=== PATIENT | male | born 1970 | race African-American/Black ===

== ENCOUNTER 2024-06-26 08:51 | Emergency (ER) | payer SELFPAY ==
--- OUTSIDE RECORDS SUMMARY | 2024-06-26 08:55 | XMS REPORT | Continuity of Care Document ---
Author Name Unknown Address [address] [place] [address] [address] [facility] Address [address] [facility] [address] [place] [address] Care Team Providers Care Grey Goods Examiner Name Role Phone YUDITH MILES Attending Clinician Unavailable NITA NAJERA Attending Clinician Unavailab flora Pinon Attending Clinician Unavailable Fernando Attending Clinician Unavailable CHARITY MCPHERSON Attending Clinician UnavailFRANKY Whittington Attending Clinician Unavailable ERNA LAMAR Attending Clinician Unavailab IVY Rader Attending Clinician Unavailable JERI HAWKINS Attending Clinician Unavailable NO PHYSICIAN, . Attending Clinician Unavailable THAO SNEED Attending Clinician Unavaila PASCUAL Renae Attending Clinician HUSAM Perez Attending Clinician Unavailab flora Pinon Admitting Clinician Unavailable Fernando Admitting Clinician Unavailable Payers Payer Name Policy Type Policy Number Effective Date Expirati on Date Source [facility] (O) [id number] Social History Smoking Status Start Date Stop Date Source Light Tobacco Smoker [facility] Medications Ordered Medication Name Filled Medication Name Start Date Stop Date Current Medication? Ordering Clinician Indication Dosage Frequency Signature (SIG) Comments Components Source Debrox 6.5 % ear drops INSTILL 5 DROPS INTO AFFECTED EAR(S) BY OTIC ROUTE 2 TIMES PER DAY Debrox 6.5 % ear drops INSTILL 5 DROPS INTO AFFECTED EAR(S) BY OTIC ROUTE 2 TIMES PER DAY No Debrox 6.5 % ear drops INSTILL 5 DROPS INTO AFFECTED EAR(S) BY OTIC ROUTE 2 TIMES PER DAY [facility] Vital Signs Vital Name Observation Time Observation Value Comments S ource BMI (Body Mass Index) 2023-02-21 00:00:00 20.5 kg/m2 [facility] BP Systolic 2023-02-21 00:00:00 138 mm[Hg] Abram gtz [facility] Body Weight 2023-02-21 00:00:00 2357 [oz_av] Maxi pedroza [facility] BP Diastolic 2023-02-21 00:00:00 83 mm[Hg] Lopez mark [facility] Height 2023-02-21 00:00:00 71 [in_i] Nora restrepo [facility] Encounters Start Date/Time End Date/Time Encounter Type Admission Type Attending Clinicians Care Facility Care Department Encounter ID Source 2024-03-15 20:04:00 2024-03-15 23:12:00 Emergency ER CATYUDITH RUIZ [facility] [id number] [facility] 2024-03-14 00:57:00 2024-03-14 05:20:00 Emergency ER YUDITH MILES [facility] [id number] [facility] 2024-03-12 17:30:00 2024-03-12 19:28:00 Emergency ER NITA NAJERA [facility] [id number] [facility] 2023-06-07 00:00:00 2023-06-07 00:00:00 Outpatient Ritter_Kath erine [facility] [id number] [facility] 2023-05-03 00:00:00 2023-05-03 00:00:00 Outpatient Ritter_Kath erine [facility] [id number] [facility] 2023-03-31 00:00:00 2023-03-31 00:00:00 Outpatient Ritter_Kath erine [facility] [id number] [facility] 2023-02-21 07:37:00 2023-02-21 08:24:00 Emergency ER NITA NAJERA [facility] [id number] [facility] 2023-02-21 00:00:00 2023-02-21 00:00:00 Outpatient Ritter_Kath erine [facility] [id number] [facility] 2023-02-21 00:00:00 2023-02-21 00:00:00 Outpatient Ritter_Kath erine [facility] [id number] [facility] 2023-02-21 00:00:00 2023-02-21 00:00:00 Outpatient Ritter_Kath erine [facility] [id number] [facility] 2023-02-21 00:00:00 2023-02-21 00:00:00 Mitzy Martínez, OPHTHALMIC SURGICAL ASSISTANT: [address] [place] [address] , Ph. [facility] [place] [facility] - [facility] Primary Expansion [id number] [facility] 2021-12-24 12:15:00 2021-12-24 12:15:00 Outpatient cMcDonald [facility] [id number] [facility] 2021-12-24 08:53:00 2021-12-24 10:55:00 Emergency ER GINGER YUDITH [facility] [id number] [facility] 2019-09-21 07:52:00 2019-09-21 09:55:00 Emergency ER RAJESHNIKIA CHARITY [facility] [id number] [facility] 2019-04-18 02:17:00 2019-04-18 03:06:00 Emergency ER FRANKY MCKINLEY [facility] [id number] [facility] 2017-11-14 06:00:00 2017-11-14 10:23:00 Emergency ER ERNA LAMAR [facility] [id number] [facility] 2017-06-22 04:46:00 2017-06-22 06:38:00 Emergency ER IVY YAP [facility] [id number] [facility] 2017-06-12 05:20:00 2017-06-12 06:36:00 Emergency ER IVY YAP [facility] [id number] [facility] 2017-06-11 12:36:00 2017-06-11 15:30:00 Emergency ER FRANKY MCKINLEY [facility] [id number] [facility] 2017-06-10 04:00:00 2017-06-10 05:01:00 Emergency ER JERI HAWKINS [facility] [id number] [facility] 2014-04-19 15:06:00 2014-04-19 17:50:00 Emergency ER ERNA LAMAR [facility] [id number] [facility] 2013-10-23 14:43:00 2013-10-23 16:04:00 Emergency ER ERNA LAMAR [facility] [id number] [facility] 2013-09-25 15:00:00 2013-09-25 15:00:00 Outpatient EL NO PHYSICIAN, . [facility] [id number] [facility] 2013-08-02 13:59:00 2013-08-02 13:59:00 Outpatient EL NO PHYSICIAN, . [facility] [id number] [facility] 2013-05-29 14:49:00 2013-05-29 14:49:00 Outpatient EL NO PHYSICIAN, . [facility] [id number] [facility] 2010-06-30 12:56:00 2010-06-30 18:00:00 Emergency ER THAO SNEED [facility] [id number] [facility] 2009-03-18 02:50:00 2009-03-18 06:14:00 Emergency ER ROGER FREEMANKAMLESH [facility] [id number] [facility] 2005-03-23 15:11:00 2005-03-23 18:15:00 Emergency ER ERNA LAMAR [facility] [id number] [facility] 1999-11-29 12:40:00 1999-11-29 15:25:00 Emergency ER HUSAM BELTRAN [facility] [id number] [facility]
[2024-06-26] MEDS ORDERED: KETOROLAC 30 MG/ML INJ ONE (09:46)
[2024-06-26] MEDS ORDERED: HYDROCODONE/APAP 10/325 TAB ONE (09:46)
--- NOTE | 2024-06-26 09:51 | ER ---
Nurse's Notes [facility] Name: Tye Wilhelm Age: 53 yrs Sex: Male : 1970 Arrival Date: 06/26/2024 Time: 08:51 Bed 10 Private MD: Diagnosis: Dental Pain Presentation: 06/26 09:11 Chief complaint: Patient states: he has been having right upper tooth pain for approx 2 ap3 months. patient reports seeing a dentist yesterday but was informed he needed to see a specialist. patient reports the pain is too severe and he can't sleep. Coronavirus screen: At this time, the client does not indicate any symptoms associated with coronavirus-19. Ebola Screen: No symptoms or risks identified at this time. Initial Sepsis Screen: Does the patient meet any 2 criteria? No. Patient's initial sepsis screen is negative. Does the patient have a suspected source of infection? No. Patient's initial sepsis screen is negative. Risk Assessment: Do you want to hurt yourself or someone else? Patient reports no desire to harm self or others. Onset of symptoms is unknown. 09:11 Method Of Arrival: Ambulatory ap3 09:11 Acuity: NAKIA 4 ap3 Triage Assessment: 09:14 General: Appears uncomfortable, Behavior is crying. Pain: Complains of pain in mouth ap3 Pain currently is 10 out of 10 on a pain scale. Pain began gradually, 2 months ago. EENT: Reports pain in right cheek, mouth and right jaw. Neuro: Level of Consciousness is awake, alert, obeys commands, Oriented to person, place, time, situation, Appropriate for age Gait is steady, Speech is normal. Cardiovascular: Patient's skin is warm and dry. Respiratory: Airway is patent Respiratory effort is even, unlabored, Respiratory pattern is regular, symmetrical. Historical: - Allergies: 09:15 No Known Allergies; ap3 - Immunization history:: Client reports receiving the 2nd dose of the Covid vaccine. - Infectious Disease History:: Denies. - Social history:: Smoking status: unknown. - Family history:: not pertinent. - Hospitalizations: : No recent hospitalization is reported. Screenin:14 [facility] ED Fall Risk Assessment (Adult) History of falling in the last 3 months, ap3 including since admission No falls in past 3 months (0 pts) Confusion or Disorientation No (0 pts) Intoxicated or Sedated No (0 pts) Impaired Gait No (0 pts) Mobility Assist Device Used No (0 pt) Altered Elimination No (0 pt) Score/Fall Risk Level 0 - 2 = Low Risk Oriented to surroundings, Maintained a safe environment, Educated pt \T\ family on fall prevention, incl call for assistance when getting out of bed, Assessed \T\ reinforced patient's understanding of fall precautions, Hourly rounding (assess needs \T\ fall precautionary measures) done, Used ambulatory aids as needed (educated on \T\ assisted with), Used gait belt as appropriate. Abuse screen: Denies threats or abuse. Nutritional screening: No deficits noted. Tuberculosis screening: No symptoms or risk factors identified. Vital Signs: 09:11 BP 129 / 90; Pulse 61; Resp 19; Temp 98.1; Pulse Ox 100% ; Pain 10/10; ap3 10:30 BP 126 / 89; Pulse 61; Resp 15; Pulse Ox 100% ; Pain 10/10; jl7 09:11 Pain Scale: Adult ap3 10:30 Pain Scale: Adult jl7 ED Course: 08:52 Patient arrived in ED. mg5 09:00 Jj Ocasio MD is Attending Physician. rn 09:13 Triage completed. ap3 09:15 Arm band placed on right wrist. ap3 09:15 No provider procedures requiring assistance completed. Patient did not have IV access ap3 during this emergency room visit. 09:44 Hans Mcclain RN is Primary Nurse. jl7 10:30 Patient has correct armband on for positive identification. Provided Education on: jl7 discharge. Administered Medications: 10:22 Drug: Ketorolac IM 30 mg IM once Route: IM; Site: right deltoid; jl7 10:22 Follow up: Response: Medication administered at discharge. jl7 10:22 Drug: Deerton PO 10 mg-325 mg 1 tabs PO once Route: PO; jl7 10:22 Follow up: Response: Medication administered at discharge. jl7 Medication: 10:30 VIS not applicable for this client. jl7 Outcome: 09:51 Discharge ordered by . rn 10:30 Patient left the ED. jl7 10:30 Discharged to home ambulatory, jl7 10:30 Condition: stable 10:30 Discharge instructions given to patient, family, Instructed on discharge instructions, follow up and referral plans. medication usage, Demonstrated understanding of instructions, follow-up care, medications, Prescriptions given X 2, Signatures: Jj Ocasio MD MD rn Leal, Jahala RN RN jl7 Vangie Ireland RN RN ap3 Michelle Dow 5
--- NOTE | 2024-06-26 09:51 | EDPHYS ---
Physician Documentation [facility] Name: Tye Wilhelm Age: 53 yrs Sex: Male : 1970 Arrival Date: 06/26/2024 Time: 08:51 Bed 10 Private MD: ED Physician Jj Ocasio HPI: 06/26 09:31 This 53 yrs old Black Male presents to ER via Ambulatory with complaints of Toothache. rn 09:31 The patient presents with pain. Onset: The symptoms/episode began/occurred at an rn unknown time. Associated signs and symptoms: Pertinent positives: pain, redness in area. Severity of symptoms: At their worst the symptoms were moderate, in the emergency department the symptoms are unchanged. The patient has experienced similar episodes in the past. Patient reports right upper posterior dental pain. Was seen yesterday [facility], told needs to follow-up with [facility]. Prescribed antibiotics but reports not given any pain medicine. Here for pain control. No change in symptoms. Difficulty sleeping due to pain. He plans on going to [facility] or [facility] care after this.. Historical: - Allergies: 09:15 No Known Allergies; ap3 - Immunization history:: Client reports receiving the 2nd dose of the Covid vaccine. - Infectious Disease History:: Denies. - Social history:: Smoking status: unknown. - Family history:: not pertinent. - Hospitalizations: : No recent hospitalization is reported. ROS: 09:31 Constitutional: Negative for fever, chills, and weight loss, ENT: Positive for dental rn pain Respiratory: Negative for shortness of breath, cough, wheezing, and pleuritic chest pain, Exam: 09:31 Constitutional: This is a well developed, well nourished patient who is awake, alert, rn and in no acute distress. Head/Face: Normocephalic, atraumatic. ENT: Poor dentition, no intraoral abscess or focal swelling noted. Vital Signs: 09:11 BP 129 / 90; Pulse 61; Resp 19; Temp 98.1; Pulse Ox 100% ; Pain 10/10; ap3 10:30 BP 126 / 89; Pulse 61; Resp 15; Pulse Ox 100% ; Pain 10/10; jl7 09:11 Pain Scale: Adult ap3 10:30 Pain Scale: Adult jl7 MDM: 09:00 Medical Screening Exam initiated rn 09:31 Differential diagnosis: dental caries, Impacted tooth, tooth and sinus, dentalgia, rn early infection. Data reviewed: vital signs, nurses notes, and as a result, I will discharge patient. Counseling: I had a detailed discussion with the patient and/or guardian regarding the historical points, exam findings, and any diagnostic results supporting the discharge/admit diagnosis, the need for outpatient follow up, to return to the emergency department if symptoms worsen or persist or if there are any questions or concerns that arise at home. Special discussion: I discussed with the patient/guardian in detail that at this point there is no indication for admission to the hospital. It is understood, however, that if the symptoms persist or worsen the patient needs to return immediately for re-evaluation. Administered Medications: 10: Drug: Ketorolac IM 30 mg IM once Route: IM; Site: right deltoid; jl7 :22 Follow up: Response: Medication administered at discharge. jl7 10:22 Drug: Addison PO 10 mg-325 mg 1 tabs PO once Route: PO; jl7 : Follow up: Response: Medication administered at discharge. jl7 Disposition Summary: 06/26/24 09:51 Discharge Ordered Notes: Location: Home rn Problem: an ongoing problem rn Symptoms: have improved rn Condition: Stable rn Diagnosis - Dental Pain rn Followup: rn - With: Private Physician - When: As needed - Reason: Recheck today's complaints, Re-evaluation by your physician Discharge Instructions: - Discharge Summary Sheet rn - Dental Pain rn Forms: - Medication Reconciliation Form rn - Antibiotic journeyman glazier - Prescription Opioid Use rn - Patient Portal Instructions rn - Leadership Thank You Letter rn Prescriptions: - gabapentin 100 mg Oral capsule - take 1 capsule ORAL route 2 times per day As needed; 14 capsule; Refills: 0, rn Product Selection Permitted - Tramadol 50 mg Oral Tablet - take 1 tablet ORAL route every 8 hours as needed; 12 tablet; Refills: 0, rn Product Selection Permitted Signatures: Jj Ocasio MD MD rn Leal, Jahala RN RN jl7 Vangie Ireland RN RN ap3
[2024-06-26 10:35] VITALS: BP 129/90; TEMP 98.1; O2SAT 100
== END 2024-06-26 10:30 | disposition home or self-care (01) ==
LOC: ER 08:51
DX: K08.89 Other specified disorders of teeth and supporting structures (principal)

== ENCOUNTER 2024-12-27 00:03 | Emergency (ER) | payer SELFPAY ==
--- OUTSIDE RECORDS SUMMARY | 2024-12-27 00:07 | XMS REPORT | Continuity of Care Document ---
Author Name Unknown Address [address] [facility] [address] [place] [address] [facility] Address [address] [facility]. [address] [place] [address] Care Team Providers Care Milk Drier Name Role Phone Stacy Ramos Attending Clinician U YUDITH Guerrier Attending Clinician Unavailable NITA NAJERA Attending Clinician Unavailab flora Pinon Attending Clinician Unavailable Fernando Attending Clinician Unavailable CHARITY MCPHERSON Attending Clinician UnavailFRANKY Whittington Attending Clinician Unavailable ERNA LAMAR Attending Clinician Unavailab IVY Rader Attending Clinician Unavailable JERI HAWKINS Attending Clinician Unavailable NO PHYSICIAN, . Attending Clinician Unavailable THAO SNEED Attending Clinician Unavaila PASCUAL Renae Attending Clinician HUSAM Perez Attending Clinician Unavailab le Physician, No Primary or Family Admitting Clinic clement Unavailable Kathrin Admitting Clinician Unavailable Fernando Admitting Clinician Unavailable Payers Payer Name Policy Type Policy Number Effective Date Expirati on Date Source [facility] (HMO) [id number] Allergies, Adverse Reactions, Alerts Allergy Name Allergy Type Status Severity Reaction(s) Onset Date Inactive Date Treating Clinician Comments Source No Known Allergie s DA Active U 11-13 00:00: 00 [facility] Social History Smoking Status Start Date Stop Date Source Light Tobacco Smoker [facility] Medications Ordered Medication Name [...] BY OTIC ROUTE 2 TIMES PER DAY [facility] Vital Signs Vital Name Observation Time Observation Value Comments S ource BMI (Body Mass Index) 2023-02-21 00:00:00 20.5 kg/m2 [place] [facility] BP Systolic 2023-02-21 00:00:00 138 mm[Hg] [place] [facility] Body Weight 2023-02-21 00:00:00 2357 [oz_av] [facility] BP Diastolic 2023-02-21 00:00:00 83 mm[Hg] [facility] Height 2023-02-21 00:00:00 71 [in_i] [facility] Encounters Start Date/Time End Date/Time Encounter Type Admission Type Attending Clinicians Care Facility Care Department Encounter ID Source 2024-11-13 19:41:00 2024-11-13 20:33:00 Emergency EM Stacy Drake [facility] [id number] [facility] 2024-03-15 20:04:00 2024-03-15 23:12:00 Emergency ER CATANESYUDITH VEE [facility] [id number] [facility] 2024-03-14 00:57:00 2024-03-14 05:20:00 Emergency ER YUDITH MILES [facility] [id number] [facility] 2024-03-12 17:30:00 2024-03-12 19:28:00 Emergency ER NITA NAJERA [facility] [id number] [facility] 2023-06-07 00:00:00 2023-06-07 00:00:00 Outpatient Ritter_Katkeely del cid [facility] [id number] [facility] 2023-05-03 00:00:00 2023-05-03 00:00:00 Outpatient Ritter_Coby del cid [facility] [id number] [facility] 2023-03-31 00:00:00 2023-03-31 00:00:00 Outpatient Ritter_Katkeely del cid [facility] [id number] [facility] 2023-02-21 07:37:00 2023-02-21 08:24:00 Emergency ER NITA NAJERA [facility] [id number] [facility] 2023-02-21 00:00:00 2023-02-21 00:00:00 Outpatient Ritter_Coby veronica [facility] [id number] [facility] 2023-02-21 00:00:00 2023-02-21 00:00:00 Outpatient Ritter_Coby del cid [facility] [id number] [facility] 2023-02-21 00:00:00 2023-02-21 00:00:00 Outpatient Ritter_Coby del cid [facility] [id number] [facility] 2023-02-21 00:00:00 2023-02-21 00:00:00 Mitzy Martínez, RN TELEHEALTH: [address] [place] [address] , Ph. [facility] [place] [facility] Primary Expansion [id number] [facility] 2021-12-24 12:15:00 2021-12-24 12:15:00 Outpatient cMcDonald [facility] [id number] [facility] 2021-12-24 08:53:00 2021-12-24 10:55:00 Emergency ER YUDITH MILES [facility] [id number] [facility] 2019-09-21 07:52:00 2019-09-21 09:55:00 Emergency ER CHARITY MCPHERSON [facility] [id number] [facility] 2019-04-18 02:17:00 2019-04-18 03:06:00 Emergency ER FRANKY MCKINLEY [facility] [id number] [facility] 2017-11-14 06:00:00 2017-11-14 10:23:00 Emergency ER BRIANDA ERNA [facility] [id number] [facility] 2017-06-22 04:46:00 2017-06-22 06:38:00 Emergency ER IVY YAP [facility] [id number] [facility] 2017-06-12 05:20:00 2017-06-12 06:36:00 Emergency ER IVY YAP [facility] [id number] [facility] 2017-06-11 12:36:00 2017-06-11 15:30:00 Emergency ER FRANKY MCKINLEY [facility] [id number] [facility] 2017-06-10 04:00:00 2017-06-10 05:01:00 Emergency ER JERI HAWKINS [facility] [id number] [facility] 2014-04-19 15:06:00 2014-04-19 17:50:00 Emergency ER SRIDHARSUNDAR CLEMENT [facility] [id number] [facility] 2013-10-23 14:43:00 2013-10-23 16:04:00 Emergency ER BRIANDA CLEMENT [facility] [id number] [facility] 2013-09-25 15:00:00 2013-09-25 15:00:00 Outpatient EL NO PHYSICIAN, . [facility] [id number] [facility] 2013-08-02 13:59:00 2013-08-02 13:59:00 Outpatient EL NO PHYSICIAN, . [facility] [id number] [facility] 2013-05-29 14:49:00 2013-05-29 14:49:00 Outpatient EL NO PHYSICIAN, . [facility] [id number] [facility] 2010-06-30 12:56:00 2010-06-30 18:00:00 Emergency ER THAO SNEED [facility] [id number] [facility] 2009-03-18 02:50:00 2009-03-18 06:14:00 Emergency ER PASCUAL FREEMAN [facility] [id number] [facility] 2005-03-23 15:11:00 2005-03-23 18:15:00 Emergency ER ERNA LAMAR [facility] [id number] [facility] 1999-11-29 12:40:00 1999-11-29 15:25:00 Emergency ER HUSAM BELTRAN [facility] [id number] [facility] Notes Date/Time Note Provider Source 2024-11-13 20:01:00 [facility] ([facility]) EMERGENCY PROVIDER REPORT REPORT#:[id number] REPORT STATUS: Signed DATE:11/13/24 TIME: 2000 PATIENT: JUANITA SCHAFER UNIT #: [id number] ROOM: BED: : 68 AGE: 54 SEX: M PCP PHYS: No Primary or Family Physician SERVICE AUTHOR: Stacy Ramos MD REP SRV REP SRV TM: 2000 * ALL edits or amendments must be made on the electronic/computer document * HPI-Dental/Mouth Prob Free Text HPI Notes Free Text HPI Notes Patient is a 54-year-old presenting to the emergency department with dental pain that has been ongoing for the past 2 weeks primarily in his right upper dental region. Patient states has had dental issues for months and had a dental extraction recently and required more but he was unable to afford it. No fever no chills no facial swelling. Not currently on antibiotics. General Initial Greet Date/Time 11/13/241942 Presentation Chief Complaint Tooth pain Review of Systems ROS Statements All systems rev neg except as marked. Free Text ROS Notes Free Text ROS Notes Dental pain Past Medical History - Adult Stated Complaint SEVERE TOOTHACHE Allergies Coded Allergies: No Known Allergies (11/13/24) Physical Exam Vital Signs Vital Signs First Documented: Result Date Time Pulse Ox 98 11/13 1941 B/P 148/87 11/13 1941 B/P Mean 107 11/13 1941 O2 Delivery Room air 11/13 1941 Temp 36.8 11/13 1941 Pulse 52 11/13 1941 Resp 18 11/13 1941 Last Documented: Result Date Time Pulse Ox 100 11/14 2031 B/P 138/79 11/14 2031 O2 Delivery Room air 11/14 2031 Temp 36.8 11/14 2031 Pulse 51 11/14 2031 Resp 18 11/14 2031 B/P Mean 107 11/13 1941 Review of Vital Signs Reviewed Free Text PE Notes Free Text PE Notes General/Const Awake, Alert, No acute distress, nontoxic Head Atraumatic Ears/Nose/Throat Airway patent Poor dentition with multiple caries. Multiple teeth on the right side with ulceration to the interdental papillary mild gingival edema and a guevara pseudomembrane. No evidence of gingival bleeding. No fluctuance or visible abscess. No facial tenderness Neck Normal range of motion Resp/Chest No respiratory distress Abdomen/GI No distention MS No extremity swelling, NO gross deformity Skin Dry Neurologic Moving all extremities, Speech NL Psychiatric Affect NL, Mood NL Re-Evaluation MDM Free Text MDM Notes Free Text MDM Notes 54-year-old here with dental pain. Exam with multiple caries gingival edema and pseudomembrane concerning for ANUG. No systemic signs or symptoms. Extensive discussion with patient and need for dental follow-up. Will start on antibiotics chlorhexidine mouthwash and topical anesthetic. Low-cost dental clinics will be given. The patient will be discharged home with supportive care, a plan for symptom management/medication(s), and follow-up instructions that detail what to expect over the next 48 hours and what symptoms should prompt immediate return to the ED. Follow-up instructions have been explained in detail to the patient/ caregiver and the instructions have been provided in written format. They are comfortable with the plan of care and have expressed an understanding of the discharge instructions. The patient and/or caregivers are aware that any significant change in condition or worsening of symptoms should prompt an immediate return to this or the closest emergency department or a call to 911. ED Course Medication(s) Ordered Medication(s) Ordered: Central Nervous System Agents Sig/Kd Start time Last Medication Dose Route Stop Time Status Admin Hydrocodone Bitart/ 1 TAB X1ED STA 11/13 2000 DC 11/13 Acetaminophen PO 11/13 Eye, Ear, Nose And Throat (Een Sig/Kd Start time Last Medication Dose Route Stop Time Status Admin Lidocaine HCl 10 ML X1ED STA 11/13 2001 DC 11/13 PO 11/13 Patient Discharge Departure Vital Signs/Condition Vital Signs First Documented: Result Date Time Pulse Ox 98 11/13 1941 B/P 148/87 11/13 1941 B/P Mean 107 11/13 1941 O2 Delivery Room air 11/13 1941 Temp 36.8 11/13 1941 Pulse 52 11/13 1941 Resp 18 11/13 1941 Last Documented: Result Date Time Pulse Ox 100 11/14 2031 B/P 138/79 11/14 2031 O2 Delivery Room air 11/14 2031 Temp 36.8 11/14 2031 Pulse 51 11/14 2031 Resp 18 11/14 2031 B/P Mean 107 11/13 1941 All vital signs available at the time of this entry have been reviewed. Clinical Impression Clinical Impression Primary Impression: ANUG (acute necrotizing ulcerative gingivitis) Disposition Decision Discharge )( Discharged to Home Yes )( Time 2001 )( Date 11/13/24 Discharge/Care Plan (Auto) Prescriptions Current Visit Scripts Amoxicillin/Clav K (Amox-Clav 875/125 Mg) 875 MG PO Q12H Amoxicillin/Clav K (Amox-Clav 875/125 Mg) 875 MG PO Q12H #20 TABS Chlorhexidine (Peridex 0.12%) 15 ML MM BID Chlorhexidine (Peridex 0.12%) 15 ML MM BID #118 ML SWICH AND SPIT BID UNTIL RESOLVED Lidocaine (Lidocaine 2% Viscous) 15 ML SWISH SPIT Q6H PRN PRN dental pain Lidocaine (Lidocaine 2% Viscous) 15 ML SWISH SPIT Q6H PRN PRN dental pain # 300 ML Patient Instructions ED Dental Abscess Additional Instructions Thank you for allowing us to provide emergent medical care to you or your family member. We consider it a privilege to have served you during your illness or injury and value your trust. I know that this packet is large and burdensome but please try to review the information provided as it will serve a guide to your next few days and getting better. If you were prescribed medication then take the medication as prescribed. Please understand that we are limited in the emergency department in providing pain management outside of this facility. Ongoing pain management can be performed by the referred specialist (in case of a broken bone an orthopedist), surgeon, or primary care provider. In limited cases you may need to see a pain specialist depending on the chronicity of your illness. Please follow-up with primary care physician in 3 to 5 days. If you do not have a primary care doctor, I have provided a list of low-cost and sometimes free primary care physicians for you to follow-up with. Even in [place], it is difficult to get into a provider. Sometimes when it is difficult to get into a specialist or a provider and you have some form of health insurance, it is recommended that you call your insurance company and asked to speak to the patient case coordinator assigned to your account. They will be able to help and guide you to a primary care physicians who are taking patients at this time. It is their obligation as your health care insurance provider to ensure that you have access to primary care. If not better or getting worse, and you cannot get into your primary care physician in a timely fashion, please return to the emergency department or call 911. Referrals Provider Referral: Valentin Amaya DDS Notes: Dentist naty 2 days Address: [address] [place] [address] [address] [place] [address] Departure Forms FREE OR LOW COST CLINICS LOW INCOME DENTAL CLINICS Discharge Note I have spoken with the patient and/or caregivers. I have explained the patient's condition, diagnoses and treatment plan based on the information available to me at this time. I have answered the patient's and/or caregiver's questions and addressed any concerns. The patient and/or caregivers have as good an understanding of the patient's diagnosis, condition and treatment plan as can be expected at this point. The vital signs have been stable. The patient's condition is stable and appropriate for discharge from the emergency department. The patient will pursue further outpatient evaluation with the primary care physician or other designated or consulting physician as outlined in the discharge instructions. The patient and/or caregivers are agreeable to this plan of care and follow-up instructions have been explained in detail. The patient and/or caregivers have received these instructions in written format and have expressed an understanding of the discharge instructions. The patient and/or caregivers are aware that any significant change in condition or worsening of symptoms should prompt an immediate return to this or the closest emergency department or a call to 911. at 2300 RPT #:[id number] END OF REPORT [facility]
--- NOTE | 2024-12-27 00:19 | ER ---
Nurse's Notes [facility] Name: Tye Wilhelm Age: 54 yrs Sex: Male : 1970 Arrival Date: 12/27/2024 Time: 00:03 Bed IW4 Private MD: Diagnosis: Dental caries, unspecified Presentation: 12/27 00:08 Chief complaint: Patient states: left jaw pain x 4 days recent removal of teeth from kl right side of mouth. Coronavirus screen: Vaccine status: Patient reports being unvaccinated. Ebola Screen: Patient negative for fever greater than or equal to 101.5 degrees Fahrenheit, and additional compatible Ebola Virus Disease symptoms. Initial Sepsis Screen: Does the patient meet any 2 criteria? No. Patient's initial sepsis screen is negative. Does the patient have a suspected source of infection?. Risk Assessment: Do you want to hurt yourself or someone else? Patient reports no desire to harm self or others. 00:08 Method Of Arrival: Ambulatory kl 00:08 Acuity: NAKIA 4 kl Triage Assessment: 00:12 General: Appears uncomfortable, slender, Behavior is cooperative. Pain: Complains of kl pain in left jaw Pain currently is 10 out of 10 on a pain scale. EENT: Poor dentition noted. Reports pain in left jaw. Historical: - Allergies: 00:12 No Known Allergies; kl - Home Meds: 00:12 None [Active]; kl - PMHx: 00:12 None; kl - PSHx: 00:12 None; kl - Immunization history:: Adult Immunizations not immunized. - Infectious Disease History:: Denies. - Social history:: Smoking status: Patient reports the use of cigarette tobacco products. Screenin:32 [facility] ED Fall Risk Assessment (Adult) History of falling in the last 3 months, kl including since admission No falls in past 3 months (0 pts) Confusion or Disorientation No (0 pts) Intoxicated or Sedated No (0 pts) Impaired Gait No (0 pts) Mobility Assist Device Used No (0 pt) Altered Elimination No (0 pt) Score/Fall Risk Level 0 - 2 = Low Risk Oriented to surroundings, Maintained a safe environment. Abuse screen: Denies threats or abuse. Nutritional screening: No deficits noted. Tuberculosis screening: No symptoms or risk factors identified. Assessment: 00:32 Reassessment: No changes from previously documented assessment. Vital Signs: 00:08 BP 137 / 82; Pulse 44; Resp 18; Pulse Ox 100% on R/A; Weight 68.04 kg; Height 5 ft. 11 kl in. ; Pain 10/10; 00:08 Body Mass Index 20.92 (68.04 kg, 180.34 cm) 00:08 Pain Scale: Adult ED Course: 00:06 Patient arrived in ED. gm2 00:12 Triage completed. kl 00:17 Sho Jacobson PA-C is PHCP. sb4 00:17 Lary Anne MD is Attending Physician. sb4 00:18 Juan Ansari DDS is Referral Physician. sb4 00:32 Patient has correct armband on for positive identification. kl 00:32 No provider procedures requiring assistance completed. Patient did not have IV access kl during this emergency room visit. Administered Medications: 00:31 Drug: Ketorolac IM 30 mg IM once Route: IM; Site: right deltoid; kl 00:31 Drug: [place] PO 10 mg-325 mg 1 tabs PO once Route: PO; kl 00:31 Drug: Amoxicillin-Clavulanate PO 875 mg PO once Route: PO; Outcome: 00:19 Discharge ordered by . sb4 00:32 Discharged to home ambulatory, kl 00:32 Condition: improved 00:32 Discharge instructions given to patient, Instructed on discharge instructions, follow up and referral plans. medication usage, Demonstrated understanding of instructions, follow-up care, medications, Prescriptions given X 3, 00:32 Patient left the ED. Signatures: Chika Negro RN RN Sho Wheeler PA-C PA-C sb4 Gisele Rodríguez gm2
--- NOTE | 2024-12-27 00:19 | EDPHYS ---
Physician Documentation [facility] Name: Tye Wilhelm Age: 54 yrs Sex: Male : 1970 Arrival Date: 12/27/2024 Time: 00:03 Bed IW4 Private MD: ED Physician Lary Anne HPI: 12/27 00:57 This 54 yrs old Black Male presents to ER via Ambulatory with complaints of Toothache, sb4 Facial Swelling. 01:00 The patient presents with broken tooth/teeth, pain, swelling. The problem is located in sb4 the upper left second bicuspid, upper left first molar and upper left second molar. Patient reports recurrent issues with poor dentition. He recently had multiple teeth extracted in his right upper molars at [facility]. States that he was getting better but now his molars on his left upper jaw are causing him a lot of pain. The dentist told him that he had to wait 2 more weeks before he could have them extracted. He states that he is unable to sleep due to the pain. Reports facial swelling as well. Denies any fever or chills. Historical: - Allergies: 00:12 No Known Allergies; kl - Home Meds: 00:12 None [Active]; kl - PMHx: 00:12 None; kl - PSHx: 00:12 None; kl - Immunization history:: Adult Immunizations not immunized. - Infectious Disease History:: Denies. - Social history:: Smoking status: Patient reports the use of cigarette tobacco products. ROS: 01:00 Constitutional: Negative for fever, chills, and weight loss, sb4 01:00 ENT: Positive for dental pain, 01:00 All other systems are negative, Exam: 01:00 Respiratory: No increased work of breathing, no retractions or nasal flaring. Skin: sb4 Warm, dry with normal turgor. Normal color with no rashes, no lesions, and no evidence of cellulitis. 01:00 Constitutional: The patient appears alert, awake, uncomfortable, 01:00 ENT: Dental exam: dental caries, that is moderate, specifically in the upper left second molar and upper left first molar and upper left second bicuspid, fractured teeth are noted, gum swelling, 01:04 Head/face: Exam is negative for swelling, Noted is tenderness, that is mild, of the sb4 left jaw, Vital Signs: 00:08 BP 137 / 82; Pulse 44; Resp 18; Pulse Ox 100% on R/A; Weight 68.04 kg; Height 5 ft. 11 kl in. ; Pain 05/23; 00:08 Body Mass Index 20.92 (68.04 kg, 180.34 cm) 00:08 Pain Scale: Adult kl MDM: 00:17 Medical Screening Exam initiated sb4 01:04 Differential diagnosis: dental caries, gingivitis, dental abscess. Data reviewed: vital sb4 signs, nurses notes, and as a result, I will discharge patient. Historians other than the Patient: Spouse/Significant Other: . Counseling: I had a detailed discussion with the patient and/or guardian regarding the historical points, exam findings, and any diagnostic results supporting the discharge/admit diagnosis, the need for outpatient follow up, a dentist, to return to the emergency department if symptoms worsen or persist or if there are any questions or concerns that arise at home. Administered Medications: 00:31 Drug: Ketorolac IM 30 mg IM once Route: IM; Site: right deltoid; kl 00:31 Drug: [place] PO 10 mg-325 mg 1 tabs PO once Route: PO; kl 00:31 Drug: Amoxicillin-Clavulanate PO 875 mg PO once Route: PO; kl Disposition: 06:52 Co-signature as Attending Physician, Lary Anne MD I agree with the assessment and gb1 plan of care. I reviewed the patient's care provided by the Advanced Practice Provider and agree with the diagnosis and treatment plan. Disposition Summary: 12/27/24 00:19 Discharge Ordered Notes: Location: Home sb4 Problem: an ongoing problem sb4 Symptoms: have improved sb4 Condition: Stable sb4 Diagnosis - Dental caries, unspecified sb4 Followup: sb4 - With: Juan Ansari DDS - When: As needed - Reason: Recheck today's complaints, Re-evaluation by your physician Discharge Instructions: - Discharge Summary Sheet sb4 - Dental Pain, [id number] sb4 - Dental Caries, Adult, [id number] sb4 Forms: - Antibiotic Education sb4 - Patient Portal Instructions sb4 - Leadership Thank You Letter sb4 Prescriptions: - gabapentin 100 mg Oral capsule - take 1 capsule ORAL route 2 times per day; 20 capsule; Refills: 0, Product sb4 Selection Permitted - Amoxicillin 875 mg Oral Tablet - take 1 tablet ORAL route every 12 hours for 10 days; 20 tablet; Refills: 0, sb4 Product Selection Permitted - Tylenol-Codeine #3 300mg-30mg Oral tablet - take 1 tablet ORAL route every 4 hours As needed; 16 tablet; Refills: 0, sb4 Product Selection Permitted Signatures: Chika Negro, RN RN Sho Wheeler PA-C PA-C sb4 Lary Anne MD MD gb1
[2024-12-27] MEDS ORDERED: AMOX/K CLAV 875 MG TAB ONE (00:25)
[2024-12-27] MEDS ORDERED: KETOROLAC 30 MG/ML INJ ONE (00:25)
[2024-12-27] MEDS ORDERED: HYDROCODONE/APAP 10/325 TAB ONE (00:26)
[2024-12-27 00:55] VITALS: BP 137/82; O2SAT 100
== END 2024-12-27 00:32 | disposition home or self-care (01) ==
LOC: ER 00:03
DX: K02.9 Dental caries, unspecified (principal); F17.210 Nicotine dependence, cigarettes, uncomplicated
CPT/HCPCS: 96372; 99284